=== PATIENT | male | born 1985 | race Two or more races ===

== ENCOUNTER 2024-02-29 14:03 | Emergency (ER) | payer OTHER ==
[~2024-02-29] VITALS: Ht 170.2 cm; Wt 78.5 kg
[2024-02-29 14:10] VITALS: BP 132/79; TEMP 98.3; O2SAT 100
[2024-02-29] MEDS ORDERED: NAPR-1164 PO (14:19)
== END 2024-02-29 14:25 | disposition home or self-care (01) ==
LOC: ER 14:13
DX: S29.011A Strain of muscle and tendon of front wall of thorax, initial encounter (principal); X50.9XXA Other and unspecified overexertion or strenuous movements or postures, initial encounter; Y93.89 Activity, other specified; Y92.89 Other specified places as the place of occurrence of the external cause; Y99.8 Other external cause status